=== PATIENT | male | born 1985 | race Two or more races ===

== ENCOUNTER 2019-11-22 22:06 | Emergency (ER) | payer SELFPAY ==
[~2019-11-22] VITALS: Ht 172.7 cm; Wt 80.9 kg
[2019-11-22 22:20] VITALS: BP 145/87
--- NOTE | 2019-11-22 22:36 | PHYS DOC ---
Past Medical History Past Medical History: Unknown Smoking Status: Never Smoker Alcohol Use: None Adult General Chief Complaint Chief Complaint: COUGH HPI HPI Patient is a 34-year-old male who presents with a dry cough no shortness of breath I scratchy throat and some diarrhea. He has not had any fever chills or sweats. He's been able to eat and drink normally. He states he's had a normal amount of urine output. He denies any abdominal pain.[] Review of Systems Review of Systems Constitutional: Denies fever or chills [] Eyes: Denies change in visual acuity, redness, or eye pain [] HENT: Denies nasal congestion or sore throat [] Respiratory: Denies cough or shortness of breath [] Cardiovascular: No additional information not addressed in HPI [] GI: Reports diarrhea[] : Denies dysuria or hematuria [] Musculoskeletal: Denies back pain or joint pain [] Integument: Denies rash or skin lesions [] Neurologic: Denies headache, focal weakness or sensory changes [] Endocrine: Denies polyuria or polydipsia [] All other systems were reviewed and found to be within normal limits, except as documented in this note. Physical Exam Physical Exam Constitutional: Well developed, well nourished, no acute distress, non-toxic appearance. [] HENT: Normocephalic, atraumatic, bilateral external ears normal, oropharynx moist, no oral exudates, nose normal. [] Eyes: PERRLA, EOMI, conjunctiva normal, no discharge. [] Neck: Normal range of motion, no tenderness, supple, no stridor. [] Cardiovascular:Heart rate regular rhythm, no murmur [] Lungs & Thorax: Bilateral breath sounds clear to auscultation [] Abdomen: Bowel sounds normal, soft, no tenderness, no masses, no pulsatile masses. [] Skin: Warm, dry, no erythema, no rash. [] Back: No tenderness, no CVA tenderness. [] Extremities: No tenderness, no cyanosis, no clubbing, ROM intact, no edema. [] Neurologic: Alert and oriented X 3, normal motor function, normal sensory function, no focal deficits noted. [] Psychologic: Affect normal, judgement normal, mood normal. [] Current Patient Data Vital Signs Vital Signs Date Time Temp Pulse Resp B/P (MAP) Pulse Ox O2 Delivery O2 Flow Rate FiO2 11/22/19 22:20 98.3 65 21 145/87 (106) Room Air 98.3 EKG EKG [] Radiology/Procedures Radiology/Procedures [] Course & Med Decision Making Course & Med Decision Making Pertinent Labs and Imaging studies reviewed. (See chart for details) [] Dragon Disclaimer Dragon Disclaimer This electronic medical record was generated, in whole or in part, using a voice recognition dictation system. Departure Departure Impression: Primary Impression: Diarrhea Disposition: 01 HOME, SELF-CARE Condition: STABLE Referrals: UNKNOWN PCP NAME (PCP) Patient Instructions: Diarrhea Additional Instructions: Drink plenty of fluids such as Gatorade or Powerade. You can take [id number] Imodium for your diarrhea symptoms. Problem Qualifiers Primary Impression: Diarrhea Diarrhea type: unspecified type Qualified Codes: R19.7 - Diarrhea, unspecified ARA ANDRES DO Nov 22, 2019 22:36
== END 2019-11-22 23:04 | disposition home or self-care (01) ==
LOC: ER 22:06
DX: R19.7 Diarrhea, unspecified (principal)
CPT/HCPCS: 99282